=== PATIENT | female | born 1960 | race American Indian/Alaskan Native ===

== ENCOUNTER 2017-06-25 11:44 | Outpatient (CLI) | payer OTHER ==
--- NOTE | 2017-06-26 13:30 | Mammography Report ---
BILATERAL DIGITAL SCREENING MAMMOGRAM with CAD: 06/25/17 11:44:00 CLINICAL: Routine screening. COMPARISON: 02/14/16 FINDINGS: There are bilateral scattered areas of fibroglandular density.No mass, architectural distortion or suspicious calcifications. IMPRESSION: No mammographic evidence of malignancy. BI-RADS CATEGORY: 1 -- Negative RECOMMENDATION: Routine mammographic screening in one year. COMMENT: Patient follow-up letters are generated by our [employer] application.
== END 2017-06-25 11:45 | disposition home or self-care (01) ==
LOC: SPVWC 11:44
PROVIDERS: ATTEND Obstetrics & Gynecology
DX: Z12.31 Encounter for screening mammogram for malignant neoplasm of breast (principal)
CPT/HCPCS: 77067

== ENCOUNTER 2019-01-29 15:00 | Outpatient (CLI) | payer OTHER ==
--- NOTE | 2019-01-29 16:25 | Mammography Report ---
DIGITAL SCREENING MAMMOGRAM WITH CAD, 01/29/2019 INDICATION: Routine screening mammography. TECHNIQUE: Digital bilateral 2D mammography was obtained in the craniocaudal and mediolateral obliq ue projections. This examination was interpreted with the benefit of Computer-Aided Detection analysi s. COMPARISON: 06/25/2017 and 02/14/2016 FINDINGS: Breast Density: There are scattered areas of fibroglandular density. A right lower inner focal asymmetry requires additional imaging. No architectural distortion or suspi cious calcifications of the right breast. There is no evidence of dominant mass, suspicious calcifica tions or architectural distortion in the left breast. IMPRESSION: Right asymmetry requiring additional imaging. Recommend recall for right spot magnificati on views and right breast ultrasound if needed. Follow up recommendation: Routine yearly Category 0: Incomplete. Needs additional imaging evaluation and/or prior mammograms for comparison. A "normal" or negative report should not discourage follow up or biopsy of a clinically significant f inding. A written summary of these findings will be mailed to the patient. The patient will be entered into a mammography reporting system which will generate a reminder letter for the patient's next appointmen t at the appropriate interval. The [employer] recommends yearly mammograms starting at age 40 and continuing as l yocasta as a woman is in good health. Breast MRI is recommended for women with an approximate 20-25% or greater lifetime risk of breast cancer, including women with a strong family history of breast or ova vish cancer or who have been treated for Hodgkin's disease. Signer Name: Boyd Tello MD Signed: 01/29/2019 4:21 PM Workstation Name: [id number]
== END 2019-01-29 15:01 | disposition home or self-care (01) ==
LOC: SPVWC 15:00
PROVIDERS: ATTEND Obstetrics & Gynecology
DX: Z12.31 Encounter for screening mammogram for malignant neoplasm of breast (principal)
CPT/HCPCS: 77067

== ENCOUNTER 2019-02-27 13:03 | Outpatient (CLI) | payer OTHER ==
--- NOTE | 2019-02-27 15:08 | Ultrasound Report ---
RIGHT DIGITAL DIAGNOSTIC MAMMOGRAM WITH CAD 02/27/2019 RIGHT LIMITED BREAST ULTRASOUND INDICATION: Finding noted in the right inferior breast on recent screening mammogram. TECHNIQUE: Digital right mammographic imaging was performed. This examination was interpreted with the benefit of Computer-Aided Detection (CAD) analysis. COMPARISON: 01/29/2019, 06/25/2017, 02/14/2016 FINDINGS: Spot compression mammographic views focused in the right inferior anterior breast were performed to e valuate the site of a previously noted focal asymmetry. There is a persistent microlobulated mass wit h a few tiny internal calcifications noted. A targeted ultrasound of the right inferior breast shows a microlobulated solid appearing 7 x 8 4 mm isoechoic lesion at the 6:00 position, 2 cm from the nipple. A few tiny foci of calcification are not ed within this lesion which would correspond to mammographic finding. IMPRESSION: Right breast lesion at the 6:00 position for which ultrasound-guided biopsy is recommended. These findings and recommendations were discussed with the patient at the conclusion of the exam by Steve Kerns. BI-RADS Category 4: Suspicious for Malignancy. A "normal" or negative report should not discourage follow up or biopsy of a clinically significant f inding. A written summary of these findings will be mailed to the patient. The patient will be entered into a mammography reporting system which will generate a reminder letter for the patient's next appointmen t at the appropriate interval. According to the [employer], yearly mammograms are recommended starting at age 40 and continuing as long as a woman is in good health. Breast MRI is recommended for women with an garrett roximately 20-25% or greater lifetime risk of breast cancer, including women with a strong family his tory of breast or ovarian cancer and women who have been treated for Hodgkin's disease. Signer Name: Charles Kerns MD Signed: 02/27/2019 3:04 PM Workstation Name: [id number]
== END 2019-02-27 13:04 | disposition home or self-care (01) ==
LOC: MAMMO 13:03
PROVIDERS: ATTEND Obstetrics & Gynecology
DX: N64.89 Other specified disorders of breast (principal); R92.8 Other abnormal and inconclusive findings on diagnostic imaging of breast

== ENCOUNTER 2019-03-24 09:44 | Outpatient (CLI) | payer OTHER ==
--- NOTE | 2019-03-24 11:51 | Mammography Report ---
RIGHT DIGITAL DIAGNOSTIC MAMMOGRAM CLINICAL: For clip placement after ultrasound-guided needle biopsy. COMPARISON: 02/27/2019 FINDINGS: A lower inner biopsy clip is identified 2-3 cm medial to the 6:00 position and is therefore discordant with the original lesion. However, the previously identified mass with calcifications is no longer present. IMPRESSION: Successful biopsy but discordant clip position. BI-RADS Category 4: Suspicious Signer Name: Boyd Tello MD Signed: 03/24/2019 11:47 AM Workstation Name: [id number]
--- NOTE | 2019-03-24 13:42 | Ultrasound Report ---
ULTRASOUND-GUIDED VACUUM-ASSISTED NEEDLE CORE BIOPSY RIGHT BREAST WITH CLIP PLACEMENT CLINICAL: A 6 mm mass at 6:00 2 cm from the nipple. FINDINGS: The procedure was explained to the patient and informed consent was obtained. Ultrasound demonstrated the previously identified mass. I marked the breast with a felt tip marker and a timeout was called. The skin was prepped with Chloro -Prep and anesthetized with 1% lidocaine. Vacuum-assisted needle core biopsy was performed through tiny dermatotomy using ultrasound guidance, 2% lidocaine with epinephrine for deep anesthesia and a 13-gauge Mammotome Elite biopsy device. Multi ple cores were obtained and placed in formalin. A clip was deployed within the lesion. The patient tolerated the procedure well and there were no apparent convocations. Hemostasis was achi eved with minimal effort and a sterile dressing was applied. A post procedure mammogram demonstrated successful clip deployment but discordance in clip position. The biopsy lesion is also no longer visible on the mammogram. She left the department in good conditi on and was given instructions for wound care and follow-up. IMPRESSION: Uncomplicated ultrasound guided needle core biopsy with clip placement right breast. Signer Name: Boyd Tello MD Signed: 03/24/2019 1:38 PM Workstation Name: [id number]
== END 2019-03-24 09:45 | disposition home or self-care (01) ==
LOC: SPVWC 09:44
PROVIDERS: ATTEND Obstetrics & Gynecology
DX: N63.13 Unspecified lump in the right breast, lower outer quadrant (principal); R92.8 Other abnormal and inconclusive findings on diagnostic imaging of breast; N64.89 Other specified disorders of breast
CPT/HCPCS: 88305